=== PATIENT | male | born 1950 | race Caucasian/White ===

== ENCOUNTER 2022-11-01 15:29 | Emergency (ER) | payer MEDICARE, SELFPAY ==
[2022-11-01 15:31] VITALS: BP 153/79; PULSE 80; RESP 14; TEMP 36.6; O2SAT 96; BMI 29.4
--- NOTE | 2022-11-01 15:55 | EX.ED.UPPERE ---
HPI History of Present Illness Chief Complaint: Laceration Narrative Narrative: Patient pinched the palm of his left hand locking a chair in the open position. Patient has an avulsion of to skin. He states he was having some bleeding as he is on Plavix. It seems to be stopped now. His tetanus is up-to-date. He denies any other injuries. PFSH PFSH Allergy/AdvReac Type Severity Reaction Status Date / Time [id number] Reductase AdvReac Abd Verified 11/01/22 15:31 Inhibitor cramps/diarrhea ROS ROS ED Constitutional Constitutional ED: Denies chills or fever(s) Gastrointestinal Gastrointestinal: Denies nausea or vomiting Musculoskeletal Musculoskeletal: Denies myalgias Integumentary Reports Abrasions Neurologic Neurologic: Denies paresthesias or weakness Hematologic/Lymphatic Hematologic/Lymphatic: Reports easy bleeding and easy bruising EXAM Physical Exam Narrative Exam Narrative: Patient awake alert no acute distress. HEENT shows no sign of trauma other than a very slight abrasion near his left jaw. He states he scraped that on a piece of wood when he was working on his porch. It does not look infected. It does not hurt him. Cardiorespiratory: Easy unlabored breathing. Extremities no deformity Skin: There is an avulsion of skin about 5 x 15 mm on the left thenar eminence. But this is a superficial avulsion. We tried to stretch and closed these edges but it just causes rolling of the skin. This is not a laceration but is a superficial avulsion. I do not see subcutaneous fatty tissue. This looks to be outer surface of the epidermis only. Const Vital Signs: 11/01/22 15:31 Temperature 98 F Temperature Source Temporal Pulse Rate 80 Respiratory Rate 14 Blood Pressure 153/79 H Blood Pressure Mean 103 Pulse Ox 96 Oxygen Delivery Method Room Air MDM MDM MDM Narrative Medical decision making narrative: I discussed options with the patient. I explained that we could numb this and use a few stitches to bring this together a little closer. But if we pull too much is going to roll the edges. I do not really want to make incisions into his hand to allow this to close more fully. I do not want to remove tissue under this. I think it will close and heal well by secondary intention although it will take a bit longer. Patient states he really does not want to have it sutured. He is happy just having a dressing that stops the bleeding. I think this is a reasonable option. Discharge Plan Triage Chief Complaint: Laceration ED Provider: Jamar Berrios Dx/Rx/DC Orders Clinical Impression: Avulsion of skin of left hand Instructions: ED Skin Avulsion Activity Restrictions/Additional Instructions: Follow-up with your physician. Keep clean. Gently float the dressing off to change it as described. As there is missing tissue, this will take a bit of time to heal completely. Protect the area until fully healed. Disposition Disposition: Home, Self Care
[2022-11-01] MEDS: Gelatin Sponge Absorbable 50cm (1) 1 EACH TOPICAL (16:10)
== END 2022-11-01 16:22 | disposition home or self-care (01) ==
PROVIDERS: Emergency Provider Emergency Medicine; Visit Provider Emergency Medicine
DX: S61.402A Unspecified open wound of left hand, initial encounter (principal); W23.0XXA Caught, crushed, jammed, or pinched between moving objects, initial encounter; Y93.89 Activity, other specified; Z79.01 Long term (current) use of anticoagulants
CPT/HCPCS: 99283